=== PATIENT | female | born 1950 ===

== ENCOUNTER 2018-04-03 16:53 | Emergency (ER) | payer MEDICAID ==
[2018-04-03 17:08] VITALS: TEMP 97.8; O2SAT 98
[2018-04-03] MEDS ORDERED: Sodium Chloride 0.9% 1,000 ML IV STA (17:25)
--- NOTE | 2018-04-03 17:57 | ED PDOC ---
HPI: Psych/Substance Abuse Time Seen by Provider: 04/03/18 17:18 Chief Complaint (Nursing): Alcohol Ingestion Chief Complaint (Provider): Alcohol Ingestion ED Caveat: Intoxicated History Per: EMS History/Exam Limitations: intoxication Onset/Duration Of Symptoms: Days Current Symptoms Are (Timing): Still Present Suicide/Self Injury Attempted (Context): None Modifying Factor(s): Alcohol Additional Complaint(s): 67 y/o female brought in by EMS for alcohol intoxication. Patient was found on a bus where she had vomited and found to be altered. Patient reportedly smelled of alcohol and was brought here for further evaluation. Patient is a limited historian due to alcohol intoxication. However, patient admits to drinking beer earlier today. Patient had one episode of vomiting here. Past Medical History Reviewed: Historical Data, Nursing Documentation, Vital Signs Vital Signs: Last Vital Signs Temp 97.8 F 04/03/18 17:07 Pulse 73 04/03/18 17:07 Resp 16 04/03/18 17:07 BP 122/73 04/03/18 17:07 Pulse Ox 98 04/03/18 17:07 - Medical History PMH: No Chronic Diseases - Surgical History Surgical History: No Surg Hx - Family History Family History: States: Unknown Family Hx - Social History Alcohol: > 2 Drinks/Day - Allergies Allergies/Adverse Reactions: Allergies Allergy/AdvReac Type Severity Reaction Status Date / Time Unobtainable Allergy Verified 04/03/18 17:07 Review of Systems ROS Statement: Except As Marked, All Systems Reviewed And Found Negative Psych: Positive for: Other (EtOH intoxication) Physical Exam - Reviewed Nursing Documentation Reviewed: Yes Vital Signs Reviewed: Yes - Physical Exam Appears: Positive for: No Acute Distress Head Exam: Positive for: ATRAUMATIC Skin: Positive for: Normal Color, Warm Eye Exam: Positive for: EOMI, PERRL Cardiovascular/Chest: Positive for: Regular Rate, Rhythm. Negative for: Murmur Respiratory: Positive for: Normal Breath Sounds. Negative for: Respiratory Distress Gastrointestinal/Abdominal: Positive for: Normal Exam, Soft. Negative for: Tenderness Neurologic/Psych: Positive for: Alert (awake), Oriented (x2), Other (Slurred speech). Negative for: Motor/Sensory Deficits - ECG O2 Sat by Pulse Oximetry: 98 (RA) Pulse Ox Interpretation: Normal Medical Decision Making Medical Decision Making: Time: 1725 Impression: Alcohol Intoxication Plan: -- Alcohol Serum -- Sodium Chloride IV 1000 mls/hr -- Zofran Inj 4 mg IV Time: 1900 -- Patient endorsed to Dr. Keller, pending sobriety. Scribe Attestation: Documented by Nathaniel Hill, acting as a scribe for Nicho Flores MD. Provider Scribe Attestation: All medical record entries made by the Scribe were at my direction and personally dictated by me. I have reviewed the chart and agree that the record accurately reflects my personal performance of the history, physical exam, medical decision making, and the department course for this patient. I have also personally directed, reviewed, and agree with the discharge instructions and disposition. Disposition - Clinical Impression Clinical Impression: Alcohol abuse with intoxication - Patient ED Disposition Is Patient to be Admitted: Transfer of Care Counseled Patient/Family Regarding: Studies Performed, Diagnosis - Disposition Disposition: Transfer of Care Disposition Time: 19:00 Condition: IMPROVED Instructions: Alcohol Use - When Is Drinking a Problem? Print Language: [place] Patient Signed Over To: Trevon Keller Handoff Comments: Sobriety
--- NOTE | 2018-04-03 19:21 | ED PDOC ---
- ECG O2 Sat by Pulse Oximetry: 98 (RA) Pulse Ox Interpretation: Normal Medical Decision Making Medical Decision Making: Time: 1899 -- Patient endorsed to me by Dr. Flores, pending sobriety. Time: 2345 --Upon provider reevaluation, patient is medically stable, achieved clinical sobriety, and requires no further treatment in the ED at this time. Patient will be discharged home. Counseling was provided and all questions were answered regarding diagnosis. There is agreement to discharge plan. Return if symptoms persist or worsen. Clinical Impression: Alcohol abuse with intoxication Scribe Attestation: Documented by Nathaniel Hill, acting as a scribe for Trevon Keller MD. Provider Scribe Attestation: All medical record entries made by the Scribe were at my direction and personally dictated by me. I have reviewed the chart and agree that the record accurately reflects my personal performance of the history, physical exam, medical decision making, and the department course for this patient. I have also personally directed, reviewed, and agree with the discharge instructions and disposition. Disposition Counseled Patient/Family Regarding: Studies Performed, Diagnosis - Clinical Impression Clinical Impression: Alcohol abuse with intoxication - POA Present On Arrival: None - Disposition Disposition: Routine/Home Disposition Time: 23:46 Condition: IMPROVED Instructions: Alcohol Use - When Is Drinking a Problem? Forms: [facility] (Spanish) Print Language: [place]UR[place]
[2018-04-04 07:49] VITALS: BP 132/64; PULSE 64; RESP 16
== END 2018-04-03 23:40 | disposition home or self-care (01) ==
LOC: H.ER 16:53
DX: F10.129 Alcohol abuse with intoxication, unspecified (principal); Y90.7 Blood alcohol level of 200-239 mg/100 ml
CPT/HCPCS: 80320; 82948; 99284; J2405; J7030